=== PATIENT | female | born 2000 | race Caucasian/White ===

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

== ENCOUNTER 2018-06-23 22:49 | Emergency (ER) | payer OTHER ==
[2018-06-23 22:59] VITALS: BP 119/65; PULSE 105; TEMP 98.5; BMI 36.8
--- NOTE | 2018-06-23 23:09 | PDOC ---
History of Present Illness - General History Source: Patient, Parent(s) (mother) Exam Limitations: No Limitations - History of Present Illness Initial Comments: 06/23/18 23:16 The patient is a 17 year old female with a significant past medical history of migraines who presents to the ED with complaints of a headache since earlier today. Patient was out to eat with her family when she suddenly became out of it and her eyes were glazed over around 8:30 pm earlier today. Mother states the patient had a gradual onset of a left sided headache on her way home from the restaurant. Patient describes the left sided headache as a burning like sensation and is crying in pain. She also reports photophobia and blurry vision associated with present symptoms. Mother gave the patient excedrin with no relief of symptoms. Patient states her typical migraines are a tension like headache and her present symptoms are worse than her typical migraines. Denies nausea or vomiting. Denies chest pain or shortness of breath. Denies changes in mental status. Denies dizziness or lightheadedness. Denies any others symptoms. <Edilberto Riggins - Last Filed: 06/23/18 23:25> <Kylie Parry - Last Filed: 06/28/18 19:50> - General Chief Complaint: Pain, Acute Stated Complaint: HEADACHE X 2 HOURS Time Seen by Provider: 06/23/18 22:52 Past History <Edilberto Riggins - Last Filed: 06/23/18 23:25> - Past Medical History COPD: No Other medical history: MIGRAINES - Immunization History Td Vaccination: Yes Immunization Up to Date: Yes - Suicide/Smoking/Psychosocial Hx Smoking History: Never smoked Have you smoked in the past 12 months: No Number of Cigarettes Smoked Daily: 0 Information on smoking cessation initiated: No Hx Alcohol Use: No Drug/Substance Use Hx: No Substance Use Type: None <Kylie Parry - Last Filed: 06/28/18 19:50> - Past Medical History Allergies/Adverse Reactions: Allergies Allergy/AdvReac Type Severity Reaction Status Date / Time almond oil Allergy Verified 06/23/18 22:54 almonds Allergy Uncoded 11/21/15 22:15 Home Medications: Ambulatory Orders NK [No Known Home Medication] 06/23/18 Review of Systems - Review of Systems Able to Perform ROS?: Yes Comments:: 06/23/18 23:16 CONSTITUTIONAL: Absent: fever, chills, diaphoresis, generalized weakness, malaise, loss of appetite HEENT: Absent: rhinorrhea, nasal congestion, throat pain, throat swelling, difficulty swallowing, mouth swelling, ear pain, eye pain, visual Changes CARDIOVASCULAR: Absent: chest pain, syncope, palpitations, irregular heart rate, lightheadedness , peripheral edema RESPIRATORY: Absent: cough, shortness of breath, dyspnea with exertion, orthopnea, wheezing, stridor, hemoptysis GASTROINTESTINAL: Absent: abdominal pain, abdominal distension, nausea, vomiting, diarrhea, constipation, melena, hematochezia GENITOURINARY: Absent: dysuria, frequency, urgency, hesitancy, hematuria, flank pain, genital pain MUSCULOSKELETAL: Absent: myalgia, arthralgia, joint swelling SKIN: Absent: rash, itching, pallor HEMATOLOGIC/IMMUNOLOGIC: Absent: easy bleeding, easy bruising, lymphadenopathy, frequent infections ENDOCRINE: Absent: unexplained weight gain, unexplained weight loss, heat intolerance, cold intolerance NEUROLOGIC: + headache, blurry vision, photophobia Absent: focal weakness or paresthesias, dizziness, unsteady gait, seizure, mental status changes, bladder or bowel incontinence PSYCHIATRIC: Absent: anxiety, depression, suicidal or homicidal ideation, hallucinations. All Other Systems: Reviewed and Negative <Edilberto Riggins - Last Filed: 06/23/18 23:25> *Physical Exam - Vital Signs Last Vital Signs Temp Pulse Resp BP Pulse Ox 98.5 F 105 H 22 119/65 100 06/23/18 22:55 06/23/18 22:55 06/23/18 22:55 06/23/18 22:55 06/23/18 22:55 - Physical Exam Comments: 06/23/18 23:16 GENERAL: The patient is awake, alert, and fully oriented, in no acute distress. HEAD:+ Tenderness of the left parietal scalp and left paraspinal cervical muscle. Pain reproduced with movement of her neck. No cervical vertebral body tenderness. No scalp lesions, masses or abrasions palpated. EYES: Pupils equal, round and reactive to light, extraocular movements intact, sclera anicteric, conjunctiva clear with no pallor. ENT: Ears normal, nares patent, oropharynx clear without exudates. Moist mucous membranes. NECK: Normal range of motion, supple without lymphadenopathy, JVD, or masses. LUNGS: Breath sounds equal, clear to auscultation bilaterally. No wheeze/ crackles. HEART: Regular rate and rhythm, normal S1 and S2 without murmur or rub. ABDOMEN: Soft/nontender/nondistended. BS wnl. No guarding or rebound. No palpable masses. No hepatosplenomegaly. EXTREMITIES: Normal range of motion, no edema. No clubbing or cyanosis. No cords, erythema, or tenderness. NEUROLOGICAL: + pupils were 1ml, equal and reactive. Cranial nerves II through XII grossly intact. Normal speech, normal gait. PSYCH: Normal mood, normal affect. SKIN: Warm, Dry, normal turgor, no rashes or lesions noted. <Edilberto Riggins - Last Filed: 06/23/18 23:25> - Vital Signs Last Vital Signs Temp Pulse Resp BP Pulse Ox 98.5 F 105 H 22 119/65 100 06/23/18 22:55 06/23/18 22:55 06/23/18 22:55 06/23/18 22:55 06/23/18 22:55 <Kylie Parry - Last Filed: 06/28/18 19:50> Progress Note - Progress Note Progress Note: Documentation has been prepared under my direction and personally reviewed by me in its entirety. I attest that this documented accurately reflects all work, treatment, procedures and medical decision making performed by me. <Kylie Parry - Last Filed: 06/28/18 19:50> Medical Decision Making - Medical Decision Making As noted above, this 17-year-old girl presents with her mother having a few hour history of left-sided headache. Gradual onset of pain occurred during dinner; this was accompanied by bilateral vision changes. Exam notable for tenderness of her scalp and paraspinal cervical muscles, on the left side. Neurologic exam was otherwise normal. Patient has a history of migraine headaches but this presentation was different according to mother in that pain appeared to be much more severe. Because of this, noncontrast head CT was performed to evaluate for acute intracranial process. Noncontrast head CT negative for fracture/bleed/masses/contusion. Patient refused Toradol IM and was given 800 mg of ibuprofen by mouth. Patient had significant relief in her pain after ibuprofen. She had some, mild residual pain in the left side of her head and mild residual blurring of her vision. 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 Patient has been strongly advised follow-up with her general medical doctor ( [facility]) as well as her career coach over the next few days. She should return to the emergency room if she has any worsening of her headache or further visual changes <Kylie Parry - Last Filed: 06/28/18 19:50> *DC/Admit/Observation/Transfer - Attestations Scribe Attestion: 06/23/18 23:16 Documentation prepared by Edilberto Riggins, acting as medical supply technician for Kylie Parry MD <Edilberto Riggins - Last Filed: 06/23/18 23:25> <Kylie Parry - Last Filed: 06/28/18 19:50> Diagnosis at time of Disposition: Headache Qualifiers: Headache type: tension-type Headache chronicity pattern: acute headache Intractability: not intractable Qualified Code(s): G44.209 - Tension-type headache, unspecified, not intractable - Discharge Dispostion Disposition: HOME Condition at time of disposition: Stable - Referrals Referrals: Luis Chadwick MD [Primary Care Provider] - 2 Days - Patient Instructions Printed Discharge Instructions: DI for Headache Additional Instructions: Continue ibuprofen as needed for headache Local warmth to area of pain/tenderness Follow-up with [facility] within the next 48 hours Follow-up with your career coach within the next 48 hours Return to ER if you have any recurrent headache or worsening of your vision - Post Discharge Activity
[2018-06-24] MEDS ORDERED: KETOROLAC TROMETHAMINE 60 MG/2 ML VIAL IM ONE (00:16)
[2018-06-24] MEDS ORDERED: KETOROLAC TROMETHAMINE 60 MG/2 ML VIAL ONE (00:27)
[2018-06-24] MEDS ORDERED: IBUPROFEN 400 MG TABLET (FP) PO ONE (00:30)
== END 2018-06-24 01:05 | disposition home or self-care (01) ==
LOC: FER 22:49
PROC: 3E0233Z Introduction of Anti-inflammatory into Muscle, Percutaneous Approach (ICD-10-PCS; principal; 2018-06-23)
DX: G44.209 Tension-type headache, unspecified, not intractable (principal)
CPT/HCPCS: 70450-TC; 84703; 99281-25